=== PATIENT | female | born 1960 | race Hispanic/Latino ===

== ENCOUNTER 2016-07-18 18:04 | Emergency (ER) | payer OTHER ==
[~2016-07-18] VITALS: Ht 165.1 cm; Wt 80.0 kg
[~2016-07-18 18:04] MED LIST: NAPROSYN500 MG PO
[2016-07-18] MEDS ORDERED: PERCOCET 5/325M1 TAB PO (22:18)
[2016-07-18 22:32] VITALS: BP 151/78
== END 2016-07-18 22:56 | disposition home or self-care (01) | DRG 605 ==
LOC: ED 18:04
DX: S00.83XA Contusion of other part of head, initial encounter (principal); M51.9 Unspecified thoracic, thoracolumbar and lumbosacral intervertebral disc disorder; M54.5 Low back pain; W01.0XXA Fall on same level from slipping, tripping and stumbling without subsequent striking against object, initial encounter; Y93.E5 Activity, floor mopping and cleaning; Y92.009 Unspecified place in unspecified non-institutional (private) residence as the place of occurrence of the external cause